=== PATIENT | female | born 1960 | race Caucasian/White ===

== ENCOUNTER 2024-02-16 01:52 | Inpatient (IN) | payer BC ==
[2024-02-16] MEDS: LORazepam 1 MG Tab PO ONE (02:31)
[2024-02-16] MEDS: droPERidol 5 MG/2 ML SDV IM ONE ×2 (03:06→03:58)
[2024-02-16] MEDS: diphenhydrAMINE 50 MG Cap PO ONE (03:06)
[2024-02-16 04:34] LABS: BASOPHILS PERCENT AUTO 0.3 % (0.0-1.0); EOSINOPHILS PERCENT AUTO 0.2 % (0.0-6.0); HEMATOCRIT 35.4 % (37.0-47.0); HEMOGLOBIN 12.4 gm/dl (12.0-16.0); IMMATURE GRAN ABSOLUTE AUTO 0.03 K/mm3 (0.00-0.05); IMMATURE GRAN PERCENT AUTO 0.5 % (0.0-0.4); LYMPHOCYTES ABSOLUTE AUTO 2.1 K/mm3 (1.0-4.8); LYMPHOCYTES PERCENT AUTO 33.7 % (24.0-44.0); MEAN CORPUSCULAR HEMOGLOBIN 31.1 pg (28.0-32.0); MEAN CORPUSCULAR VOLUME 88.7 fl (83.0-99.0); MEAN PLATELET VOLUME 10.2 fl (9.4-12.3); MONOCYTES ABSOLUTE AUTO 0.5 K/mm3 (0.0-0.8); MONOCYTES PERCENT AUTO 8.4 % (0.0-8.0); NEUTROPHILS ABSOLUTE AUTO 3.5 K/mm3 (1.8-7.7); NEUTROPHILS PERCENT AUTO 56.9 % (41.0-71.0); PLATELET COUNT,PLT 212 K/mm3 (150-400); RED BLOOD CELL COUNT 3.99 M/mm3 (4.10-5.30)
[2024-02-16 04:55] LABS: A/G RATIO 1.1 (1-2); ALBUMIN 3.4 g/dl (3.4-5.0); ANION GAP 16.5 (5-15); BILIRUBIN TOTAL 0.4 mg/dL (0.2-1.0); BUN/CREATININE RATIO 23.3 (14-18); CALCIUM 8.7 mg/dL (8.5-10.1); CREATININE 0.6 mg/dL (0.55-1.02); EST CRCL DRUG DOSING (CG) 69.83 mL/min; MAGNESIUM 1.5 mg/dL (1.8-2.4); POTASSIUM,K 3.5 mEq/L (3.5-5.1); PROTEIN TOTAL,TP 6.5 g/dl (6.4-8.2)
[2024-02-16 05:06] LABS: ETHANOL BLOOD MEDICAL 0.08 gm% (0.00); TSH 2.346 uIU/mL (0.358-3.74)
[2024-02-16 05:11] LABS: BARBITURATE SCREEN,URINE NEGATIVE (CUTOFF=200); BENZODIAZEPINES SCREEN,URINE NEGATIVE (CUTOFF=150); BUPRENORPHINE SCREEN,URINE NEGATIVE (CUTOFF=10); METHADONE SCREEN, URINE NEGATIVE (CUTOFF=200); METHAMPHETAMINES SCREEN, URINE NEGATIVE (CUTOFF=500); OXYCODONE SCREEN,URINE NEGATIVE (CUT0FF=100); THC SCREEN,URINE 20 NG/ML PRESUMPTIVE POSITIVE (CUTOFF=50)
[2024-02-16 05:17] LABS: AMPHETAMINES SCREEN, URINE NEGATIVE (CUTOFF=500)
[2024-02-16] MEDS: LORazepam 2 MG/ML SDV IV ONE ×2 (05:22→06:31)
[2024-02-16] MEDS ORDERED: DROPERIDOL IV ONE (05:45)
[2024-02-16] MEDS ORDERED: SODIUM CHLORIDE 0.9% IV ONE (05:45)
[2024-02-16] MEDS: droPERidol 5 MG/2 ML SDV IVPUSH ONE (05:50)
[2024-02-16] MEDS: diphenhydrAMINE 50 MG/ML SDV IVPUSH ONE (06:08)
[2024-02-16 06:39] LABS: APPEARANCE,URINE CLEAR (Clear); BILIRUBIN,URINE NEGATIVE (Negative); COLOR,URINE YELLOW (Yellow); GLUCOSE,URINE NEGATIVE (Negative); KETONES,URINE NEGATIVE (Negative); LEUKOCYTE ESTERASE,URINE NEGATIVE (Negative); NITRITE,URINE NEGATIVE (Negative); OCCULT BLOOD,URINE 2+ (Negative); PROTEIN,URINE 1+ (Negative); UROBILINOGEN,URINE 0.2 (0.2-1.0)
[2024-02-16 06:56] LABS: BACTERIA,URINE FEW /hpf (FEW); MUCUS,URINE NOT SEEN /hpf (FEW); SQUAMOUS EPITHELIAL CELLS,UR 0-5 /hpf (0-5); WBC,URINE 0-5 /hpf (0-5)
[2024-02-16] MEDS: LORazepam 2 MG/ML SDV IVPUSH ONE ×3 (07:51→11:44)
[2024-02-16] MEDS: OLANZapine 10 MG Vial IM ONE (09:20)
[2024-02-16] MEDS: Sodium Chloride 0.9% 1,000 ML IV ONE (10:30)
[2024-02-16] MEDS: Ketamine 200 MG/20 ML MDV IVPUSH ONE (10:33)
[2024-02-16] MEDS: LORazepam 2 MG/ML SDV ONE (11:40)
[2024-02-17 04:29] LABS: BASOPHILS PERCENT AUTO 0.5 % (0.0-1.0); EOSINOPHILS ABSOLUTE AUTO 0.1 K/mm3 (0.0-0.4); EOSINOPHILS PERCENT AUTO 1.3 % (0.0-6.0); HEMATOCRIT 36.4 % (37.0-47.0); HEMOGLOBIN 12.5 gm/dl (12.0-16.0); IMMATURE GRAN ABSOLUTE AUTO 0.02 K/mm3 (0.00-0.05); IMMATURE GRAN PERCENT AUTO 0.3 % (0.0-0.4); LYMPHOCYTES ABSOLUTE AUTO 2.1 K/mm3 (1.0-4.8); LYMPHOCYTES PERCENT AUTO 34.8 % (24.0-44.0); MEAN CORPUSCULAR HEMOGLOBIN 30.9 pg (28.0-32.0); MEAN CORPUSCULAR HGB CONC 34.3 g/dl (32.0-36.0); MEAN CORPUSCULAR VOLUME 89.9 fl (83.0-99.0); MONOCYTES ABSOLUTE AUTO 0.6 K/mm3 (0.0-0.8); MONOCYTES PERCENT AUTO 10.3 % (0.0-8.0); NEUTROPHILS ABSOLUTE AUTO 3.2 K/mm3 (1.8-7.7); NEUTROPHILS PERCENT AUTO 52.8 % (41.0-71.0); PLATELET COUNT,PLT 184 K/mm3 (150-400); RED BLOOD CELL COUNT 4.05 M/mm3 (4.10-5.30); WHITE BLOOD CELL COUNT,WBC 6.04 K/mm3 (3.9-11.3)
[2024-02-17 04:52] LABS: ALBUMIN 3.1 g/dl (3.4-5.0); ANION GAP 15.7 (5-15); BILIRUBIN TOTAL 1.1 mg/dL (0.2-1.0); BUN/CREATININE RATIO 15.7 (14-18); CALCIUM 8.5 mg/dL (8.5-10.1); CREATININE 0.7 mg/dL (0.55-1.02); EST CRCL DRUG DOSING (CG) 59.85 mL/min; POTASSIUM,K 2.7 mEq/L (3.5-5.1); PROTEIN TOTAL,TP 6.2 g/dl (6.4-8.2)
[2024-02-17] MEDS: Potassium Chloride 10 MEQ in Premix Bag 1 BAG IV SCH (07:47)
[2024-02-17] MEDS: Sodium Chloride 0.9% 250 ML IV SCH (07:47)
[2024-02-17] MEDS: Potassium Chloride 20 MEQ Tab.ER PO ONE (10:28)
[2024-02-17] MEDS: Enoxaparin 40 MG/0.4 ML Syringe SUBCUT SCH (10:28)
[2024-02-17] MEDS: Potassium Chloride 10 MEQ in Premix Bag 1 BAG IV ONE (12:23)
[2024-02-17 15:16] LABS: ANION GAP 19.8 (5-15); BUN/CREATININE RATIO 13.8 (14-18); CALCIUM 8.6 mg/dL (8.5-10.1); CREATININE 0.8 mg/dL (0.55-1.02); EST CRCL DRUG DOSING (CG) 52.37 mL/min; POTASSIUM,K 3.8 mEq/L (3.5-5.1)
[2024-02-17] MEDS: Magnesium Oxide 400 MG Tab PO ONE (16:08)
[2024-02-17 16:58] LABS: BASE EXCESS VENOUS -4.1 (-4.0-2.0); BICARBONATE,VENOUS 19.4 meq/L (22-26); O2 SATURATION VENOUS 55.8; PCO2 VENOUS 32.8 mmHg (41-51); PH,VENOUS 7.39 (7.30-7.40)
[2024-02-17] MEDS: Lactated Ringers 1,000 ML IV ONE (18:04)
[2024-02-17] MEDS: Melatonin 3 MG Tab PO PRN (20:09)
[2024-02-17] MEDS: Lactated Ringers 1,000 ML IV SCH (21:11)
[2024-02-17] MEDS: traZODone 50 MG Tab PO PRN (21:34)
[2024-02-17 23:29] LABS: LACTIC ACID 1.5 mmol/L (0.4-2.0)
[2024-02-18] MEDS: LORazepam 2 MG/ML SDV IVPUSH PRN (01:20)
[2024-02-18] MEDS: LORazepam 2 MG/ML SDV ONE (01:40)
[2024-02-18 06:13] LABS: A/G RATIO 0.9 (1-2); ALBUMIN 2.8 g/dl (3.4-5.0); ANION GAP 13.9 (5-15); BILIRUBIN TOTAL 0.5 mg/dL (0.2-1.0); CALCIUM 8.5 mg/dL (8.5-10.1); CREATININE 0.6 mg/dL (0.55-1.02); EST CRCL DRUG DOSING (CG) 69.83 mL/min; POTASSIUM,K 3.9 mEq/L (3.5-5.1); PROTEIN TOTAL,TP 5.8 g/dl (6.4-8.2)
[2024-02-18 07:31] LABS: FERRITIN 350 ng/ml (8-252); IRON,FE 87 ug/dL (50-170)
[2024-02-18 08:22] LABS: HEMOGLOBIN A1C 5.3 %
[2024-02-18] MEDS: Atropine 0.1 MG/ML 10 ML Syringe ONE (12:47)
[2024-02-18] MEDS: cloNIDine 0.1 MG Tab PO ONE (20:40)
[2024-02-19] MEDS: Ondansetron 4 MG/2 ML SDV IV PRN (04:42)
== END 2024-02-19 10:40 | disposition home or self-care (01) | DRG 52 ==
LOC: JD.ED 01:52 → JD.ICU 12:25
PROVIDERS: ADMIT Family Medicine; ATTEND Family Medicine
DX: G92.8 Other toxic encephalopathy (principal); F19.139 Other psychoactive substance abuse with withdrawal, unspecified; Y90.0 Blood alcohol level of less than 20 mg/100 ml; F10.139 Alcohol abuse with withdrawal, unspecified; F41.8 Other specified anxiety disorders; F12.10 Cannabis abuse, uncomplicated; F11.13 Opioid abuse with withdrawal; G25.71 Drug induced akathisia; G25.81 Restless legs syndrome; E87.20 Acidosis, unspecified; Z79.899 Other long term (current) drug therapy
CPT/HCPCS: 36415; 70450; 70450-26; 80048; 80053; 80143; 80179; 80306; 80307; 81001; 82140; 82728; 82803; 83036; 83540; 83605; 83735; 84443; 84466; 85025; 93005; 94762; 96361; 96372; 96374; 96375; 96376; 99285-25; A9270-GY; J1200; J1650; J1790; J2060; J2359; J2405; J3480; J3490; J7030; J7050; J7120; Q0163